=== PATIENT | female | born 1945 | race African-American/Black ===

== ENCOUNTER 2019-11-24 14:09 | Emergency (ER) | payer OTHER ==
[2019-11-24 14:33] VITALS: BP 149/72; PULSE 69; TEMP 98.1; BMI 26.5
--- NOTE | 2019-11-24 15:30 | PDOC ---
History of Present Illness - General Chief Complaint: Itching Stated Complaint: SENT BY PCP/HYPERTENSION Time Seen by Provider: 11/24/19 15:15 - History of Present Illness Initial Comments: 11/24/19 15:25 74-year-old female past medical history of depression anxiety hypertension insomnia and hypothyroidism presented to the ED from urgent care complaining of itchy hands and feet. Patient states that she has an internal itchiness and was recently placed on Lexapro and Ambien by her PCP and therapist for anxiety/depression. Patient is attributing the itchiness and insomnia that she usually experiences to her anxiety and depression. Patient was able to sleep a few hours last night and understands that she is to follow-up with her PCP and therapist. Patient was also sent for UTI by the urgent care and endorses some mild dysuria. Patient denies SI HI as well as auditory and visual hallucinations. pt otherwise denies: fevers, chills, syncope, lightheadedness, dizziness, headaches, neck pain, chest pain, shortness of breath, palpitations, back pain, abdominal pain, nausea, vomiting, diarrhea, constipation. Past History - Medical History Allergies/Adverse Reactions: Allergies Allergy/AdvReac Type Severity Reaction Status Date / Time latex Allergy Verified 11/24/19 14:23 Penicillins Allergy Verified 11/24/19 14:23 Home Medications: Ambulatory Orders Amlodipine Besylate [Norvasc -] 5 mg PO DAILY 04/21/17 Febuxostat [Uloric -] 40 mg PO DAILY 04/21/17 Hydrochlorothiazide [Hctz -] 25 mg PO DAILY 04/21/17 Levothyroxine [Synthroid -] 25 mcg PO DAILY 04/21/17 Simvastatin [Zocor -] 20 mg PO HS 04/21/17 Vitamin E 400 unit PO DAILY 04/21/17 Ranitidine HCl 150 mg PO BID #180 tablet 04/22/17 Ranitidine [Zantac -] 150 mg PO BID #2 tablet 04/22/17 Hydroxyzine HCl 25 mg PO DAILY 14 Days #14 tablet 11/24/19 Nitrofurantoin Monohyd/M-Cryst [Macrobid -] 100 mg PO BID 5 Days #10 capsule 11/24/19 COPD: No GI Disorders: Yes (COLON POLYPS) HTN: Yes Hypercholesterolemia: Yes Thyroid Disease: Yes (HYPOTHYROID) - Psycho-Social/Smoking History Smoking History: Never smoked Have you smoked in the past 12 months: No - Substance Abuse Hx (Audit-C & DAST Scrn) How often the patient has a drink containing alcohol: Never Score: In Men: 4 or > Positive; In Women: 3 or > Positive: 0 Screen Result (Pos requires Nsg. Audit-10AR): Negative In the last yr the pt used illegal drug/Rx for NonMed reason: No Score: Yes response is considered Positive: 0 Screen Result (Positive result requires Nsg. DAST-10): Negative *Physical Exam - Vital Signs Last Vital Signs Temp Pulse Resp BP Pulse Ox 98.1 F 69 18 149/72 100 11/24/19 14:24 11/24/19 14:24 11/24/19 14:24 11/24/19 14:24 11/24/19 14:24 - Physical Exam 11/24/19 15:28 Gen: AAOx 3, no acute distress, comfortable, no signs of respiratory distress HENT: atraumatic, normocephalic with no laceration or contusion. Nasal mucosa without erythema. Oropharynx without erythema or exudates. Mucous membranes moist. EYES: PERRL, EOM intact, conjunctiva pink NECK: supple; trachea midline; no JVD, no lymphadenopathy, or thyromegaly CV: RRR no murmurs, gallops, or rubs. CHEST: CTA b/l no wheezing, rales or rhonchi ABD: +BS/ND. no TTP; soft, no rebound, no guarding EXTREMITY: no cyanosis or erythema. 2+ dorsalis pedis, posterior tibial, and radial pulse. No pedal edema; no calf swelling or tenderness SKIN: no rash, warm and dry, no diaphoresis HEME: no purpura or ecchymosis NEURO: normal speech, CN II-XII intact, sensation intact, normal gait, no cerebellar deficits MS: 5/5 strength in all extremities, FROM intact in all extremities. Medical Decision Making - Medical Decision Making 11/24/19 15:29 74-year-old female complaining of itchy hands and feet without rash present as well as possible UTI Vital signs stable And burning may be caused by patient's simvastatin or blood pressure medication will have patient follow-up with both PCP and therapist for further assessment Will obtain UA and UC Will reassess based on results UA positive for UTI will treat outpatient with ABX Will discharge with hydroxyzine for pruritus Pt to follow up with both PCP and therapist. Pt appears well and is safe and stable for discharge with strict return precautions including signs and symptoms requring immediate return to the ED Supportive care instructions explained and given to pt. Reasons to return emergently to ER explained and given. Importance of follow up with PMD and other specialists as indicated stressed to pt. Pt verbalized understanding of instructions. Pt to follow up with PMD in 2 days. Discharge - Discharge Information Problems reviewed: Yes Clinical Impression/Diagnosis: Chronic pruritus UTI (urinary tract infection) Qualifiers: Urinary tract infection type: acute cystitis Hematuria presence: without hematuria Qualified Code(s): N30.00 - Acute cystitis without hematuria Condition: Stable Disposition: HOME - Additional Discharge Information Prescriptions: Hydroxyzine HCl 25 mg PO DAILY 14 Days #14 tablet Nitrofurantoin Monohyd/M-Cryst [Macrobid -] 100 mg PO BID 5 Days #10 capsule - Follow up/Referral Referrals: Jessica Gee MD [Primary Care Provider] - - Patient Discharge Instructions Patient Printed Discharge Instructions: DI for Urinary Tract Infection (UTI), DI for Anxiety -- Adult - Post Discharge Activity
[2019-11-24 17:01] LABS: EPI CELLS >36 /uL (0-25.1); HYALINE CASTS 3 /uL (0-3.1); PH,URINE 5.5 (5.0-8.0); URINE APPEARANCE CLEAR; URINE BACTERIA 463 /uL (0-1359); URINE BILIRUBIN NEGATIVE (NEGATIVE); URINE COLOR YELLOW; URINE GLUCOSE (UA) NEGATIVE (NEGATIVE); URINE KETONE 1+ (NEGATIVE); URINE LEUK ESTERASE 2+ (NEGATIVE); URINE NITRITE NEGATIVE (NEGATIVE); URINE PROTEIN NEGATIVE (NEGATIVE); URINE UROBILINOGEN 0.2 mg/dL (0.2-1.0); URINE WBC 57 /uL (0-25.8)
[2019-11-24 18:43] LABS: URINE RBC 18.8 /uL (0-23.9)
== END 2019-11-24 17:16 | disposition home or self-care (01) ==
LOC: JERFT 14:09
DX: N30.00 Acute cystitis without hematuria (principal); L29.9 Pruritus, unspecified
CPT/HCPCS: 81003; 87077; 87086; 99283-25